=== PATIENT | male | born 1965 | race Caucasian/White ===

== ENCOUNTER 2016-07-31 07:28 | Emergency (ER) | payer OTHER | END 2016-07-31 09:11 | disposition home or self-care (01) | LOC: CED 07:28 | DX: S01.511A Laceration without foreign body of lip, initial encounter (principal); Z23 Encounter for immunization; Z88.0 Allergy status to penicillin; W22.8XXA Striking against or struck by other objects, initial encounter | CPT/HCPCS: 12011; 90471; 90715; 99283 ==